=== PATIENT | male | born 2000 | race Caucasian/White ===

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

== ENCOUNTER 2020-07-09 17:21 | Emergency (ER) | payer BC ==
--- NOTE | 2020-07-09 17:54 | ED ---
General Adult HPI <Jackie Garay - Last Filed: 07/09/20 17:49> <Guanakito Pruitt - Last Filed: 07/09/20 20:30> - General Chief complaint: ENT Stated complaint: Sent by PCP - covid+, BAM Time Seen by Provider: 07/09/20 17:49 - History of Present Illness Initial comments: Patient is a 19-year-old male with history of diabetes, presenting to emergency Department requesting Covid antiviral infusion treatment. Patient states he tested positive today for Covid, his symptoms began on Sunday, 4 days ago. His symptoms seem to be mild, cough, congestion, sore throat. He denies any chest pain, no shortness of breath, no fevers or chills. He states he followed up with his doctor who recommended coming in for antiviral infusion as he is a diabetic. He has no further complaints at this time. Upon arrival to the ER his vital signs are stable. (Jackie Garay) - Related Data Home Medications Medication Instructions Recorded Confirmed Acetaminophen [Tylenol] 650 mg PO Q4H PRN 11/12/17 11/12/17 Albuterol Sulfate [Proair Hfa] 1 - 2 puff INHALATION Q6HR PRN 11/12/17 11/12/17 Insulin Aspart (For Pump) [NovoLOG 0.01 unit SQ-PUMP CONTINUOUS 11/12/17 11/12/17 (For Pump)] Previous Rx's Medication Instructions Recorded Ondansetron Odt [Zofran Odt] 4 mg PO Q8HR PRN #12 tab 11/12/17 Allergies Allergy/AdvReac Type Severity Reaction Status Date / Time No Known Allergies Allergy Verified 11/12/17 17:40 Review of Systems ROS Other: All systems not noted in ROS Statement are negative. <Jackie Garay - Last Filed: 07/09/20 17:49> ROS Other: All systems not noted in ROS Statement are negative. <Guanakito Pruitt - Last Filed: 07/09/20 20:30> ROS Statement: Those systems with pertinent positive or pertinent negative responses have been documented in the HPI. Past Medical History Past Medical History: Diabetes Mellitus History of Any Multi-Drug Resistant Organisms: None Reported Past Surgical History: No Surgical Hx Reported Past Psychological History: No Psychological Hx Reported Past Alcohol Use History: None Reported Past Drug Use History: None Reported <Jackie Garay - Last Filed: 07/09/20 17:49> General Exam <Jackie Garay - Last Filed: 07/09/20 17:49> - General Exam Comments Initial Comments: GENERAL: Patient is well-developed and well-nourished. Patient is nontoxic and in no acute distress. HEAD: Atraumatic, normocephalic. EYES: Pupils equal round and reactive to light, extraocular movements intact, sclera anicteric, conjunctiva are normal. Eyelids were unremarkable. ENT: Nares patent, oropharynx clear without exudates. Moist mucous membranes. NECK: Normal range of motion, supple without lymphadenopathy or JVD. LUNGS: Unlabored respirations. Breath sounds clear to auscultation bilaterally and equal. No wheezes rales or rhonchi. HEART: Regular rate and rhythm without murmurs, rubs or gallops. ABDOMEN: Soft, nontender, normoactive bowel sounds. No guarding, no rebound. No masses appreciated. : Deferred MUSCULOSKELETAL: Normal extremities with adequate strength and normal range of motion, no pitting or edema. No clubbing or cyanosis. NEUROLOGICAL: Patient is alert and oriented x 3. Motor and sensory are also intact. Cranial nerves II through XII grossly intact. Symmetrical smile. Normal speech, normal gait. PSYCH: Normal mood, normal affect. SKIN: Warm, Dry, normal turgor, no rashes or lesions noted. (Jackie Garay) Course Vital Signs 07/09/20 17:47 Temperature 98.4 F Pulse Rate 81 Respiratory 18 Rate Blood Pressure 156/87 O2 Sat by Pulse 98 Oximetry Medical Decision Making <Jackie Garay - Last Filed: 07/09/20 17:49> <Guanakito Pruitt - Last Filed: 07/09/20 20:30> - Medical Decision Making Patient is a 19-year-old male with history of type 1 diabetes, presenting for Covid antiviral infusion. He tested positive for Covid today, symptoms began 4 days ago. His vitals are stable, exam is unremarkable. Patient does qualify for BAM infusion. (Jackie Garay) 19-year-old male with history of type 1 diabetes presenting to emergency Department with a chief complaint of monoclonal antibody infusion. Patient was given the infusion and tolerated well. He was observed in the emergency department for over an hour. Patient will be discharged and advised to continue quarantining. Antipyretic control. Plenty of fluids. Return to emergency department if symptoms worsen. Case discussed with Dr. Acevedo. (Guanakito Pruitt) Disposition <Jackie Garya - Last Filed: 07/09/20 17:49> Is patient prescribed a controlled substance at d/c from ED?: No Time of Disposition: 20:30 <Guanakito Pruitt - Last Filed: 07/09/20 20:30> Clinical Impression: COVID-19 Disposition: HOME SELF-CARE Condition: Stable Instructions (If sedation given, give patient instructions): Coronavirus Disease 2019 (COVID-19) Additional Instructions: Please return to the Emergency Department if symptoms worsen or any other concerns. Referrals: Ishmael Felipe MD [Primary Care Provider] - 1-2 days
[2020-07-09] MEDS ORDERED: BAMLANIVIMAB (EUA) 700 MG, ETESEVIMAB (EUA) 1,400 MG in SODIUM CHLORIDE 0.9% 50 ML IVPB ONE (18:30)
[2020-07-09] MEDS ORDERED: SODIUM CHLORIDE 0.9% 50 ML IVPB ONE (18:50)
[2020-07-09 21:31] VITALS: BP 130/83; PULSE 65; RESP 16; TEMP 98
== END 2020-07-09 21:30 | disposition home or self-care (01) ==
LOC: EC 17:21
DX: U07.1 COVID-19 (principal); E11.9 Type 2 diabetes mellitus without complications; Z79.4 Long term (current) use of insulin
CPT/HCPCS: 99283; 96365; Q0245

== ENCOUNTER → 2024-03-03 | Outpatient (CLI) | payer BC ==
--- NOTE | 2024-03-03 12:19 | CA ---
Transthoracic Echo Report Name: Ellis Amezcua Age: 23 Gender: M : 2000 Exam Date: 03/03/2024 11:35 Exam Location: [place] Echo Ht (in): 68 Wt (lb): 235 Ordering Physician: Ishmael Felipe MD Attending/Referring Phys: Denice Wade [facility] [employer] Setter Anu Stout RDCS Procedure CPT: Indications: R94.31 ABNORMAL ELECTROCARDIOGRAM Cardiac Hx: Technical Quality: Fair Contrast 1: Total Dose (mL): Contrast 2: Total Dose (mL): MEASUREMENTS (Male / Female) Normal Values 2D ECHO LV Diastolic Diameter PLAX 4.4 cm 4.2 - 5.9 / 3.9 - 5.3 cm LV Systolic Diameter PLAX 3.1 cm IVS Diastolic Thickness 1.1 cm 0.6 - 1.0 / 0.6 - 0.9 cm LVPW Diastolic Thickness 1.1 cm 0.6 - 1.0 / 0.6 - 0.9 cm LV Relative Wall Thickness 0.5 RV Internal Dim ED PLAX 3.2 cm LA Systolic Diameter LX 3.1 cm 3.0 - 4.0 / 2.7 - 3.8 cm LV Diastolic Volume MOD 4C 102.6 cm??? LV Systolic Volume MOD 4C 59.7 cm??? LV Ejection Fraction MOD 4C 41.9 % LV Cardiac Index MOD 4C 1230.6 cm???/min???m??? LV Diastolic Length 4C 8.0 cm LV Systolic Length 4C 6.7 cm LV Diastolic Volume MOD 2C 129.3 cm??? LV Systolic Volume MOD 2C 58.4 cm??? LV Ejection Fraction MOD 2C 54.8 % LV Cardiac Index MOD 2C 2029.0 cm???/min???m??? LV Diastolic Length 2C 8.4 cm LV Systolic Length 2C 6.8 cm LA Volume 35.8 cm??? 18 - 58 / 22 - 52 cm??? LA Volume Index 15.5 cm???/m??? 16 - 28 cm???/m??? M-MODE LV Diastolic Diameter MM 4.8 cm 4.2 - 5.9 / 3.9 - 5.3 cm LV Systolic Diameter MM 3.0 cm LV Cardiac Index MM Teich 2025.9 cm???/min???m??? IVS Diastolic Thickness MM 1.0 cm 0.6 - 1.0 / 0.6 - 0.9 cm LVPW Diastolic Thickness MM 1.1 cm 0.6 - 1.0 / 0.6 - 0.9 cm LV Relative Wall Thickness MM 0.4 0.24 - 0.42 / 0.22 - 0.42 LV Mass Index MM 76.6 g/m??? 49 - 115 / 43 - 95 g/m??? Aortic Root Diameter MM 3.1 cm AV Cusp Separation MM 1.9 cm DOPPLER AV Peak Velocity 137.9 cm/s AV Peak Gradient 7.6 mmHg MV Area PHT 3.7 cm??? Mitral E Point Velocity 81.8 cm/s Mitral A Point Velocity 52.4 cm/s Mitral E to A Ratio 1.6 MV Deceleration Time 205.2 ms TR Peak Velocity 218.7 cm/s TR Peak Gradient 19.1 mmHg Right Ventricular Systolic Press 24.0 mmHg FINDINGS Left Ventricle Left ventricular ejection fraction is estimated at 55 %. Mildly increased septal wall thickness. Left ventricular cavity size normal. Right Ventricle Normal right ventricular size and function. Right ventricular systolic pressure within normal limits. Right Atrium Normal right atrial size. No right atrial thrombus or mass seen. Left Atrium Normal left atrial size. No left atrial thrombus or mass present. Mitral Valve Structurally normal mitral valve. No evidence for mitral valve prolapse. Aortic Valve Trileaflet aortic valve. No aortic valve stenosis or regurgitation. Tricuspid Valve Structurally normal tricuspid valve. Mild tricuspid regurgitation. Pulmonic Valve Structurally normal pulmonic valve. No pulmonic regurgitation. Pericardium No pericardial or pleural effusion. Aorta Normal size aortic root and proximal ascending aorta. CONCLUSIONS Normal LV size and systolic function although endocardial margins are not well seen.. No significant abnormality on the Doppler exam. No pericardial effusion. Previewed by: Dr. Alphonso Blanchard MD (Electronically Signed) Final Date: 03 March 2024 12:19
== END | disposition home or self-care (01) ==
LOC: RADECHMAIN 11:18
PROVIDERS: ATTEND Family Medicine
DX: I07.1 Rheumatic tricuspid insufficiency (principal); R94.31 Abnormal electrocardiogram [ECG] [EKG]
CPT/HCPCS: 93306

== ENCOUNTER → 2024-04-11 | Outpatient (CLI) | payer BC ==
--- NOTE | 2024-04-11 13:27 | CA ---
Stress Echo Report Ellis Amezcua Age: 23 Gender: M : 2000 Exam Date: 04/11/2024 09:21 Exam Location: [place] Stress Ht (in): 68 Wt (lb): 220 Ordering Physician: Ishmael Felipe MD Referring Physician: Matteo GONZALEZ Court Recorder: RICHARD Technologist Procedure CPT: Indication: R94.31 ABNORMAL EKG ICD-9 Codes: Rhythm: Patient History: Cardiac Medications: LISINOPRIL, LEXAPRO, Medications in past 24 hours: Contrast: N/A Stress Results Protocol: Shashi Total dose(mL): NA Exercise Duration (min:sec): 9:[address] Depression (mm): Angina Score: Grimaldo Score: METS: 11.1 Resting HR: 96 Resting BP: 126 / 78 Peak HR: 182 Peak BP: 192 / 79 Max Predicted HR: 195 93 % Max Predicted HR Target HR: 166 Double Product: [id number] Stress Summary: The patient's target heart rate was achieved The hemodynamic response to exercise was normal BP Response: Reason for Termination: MAX EXERTION/TARGET HR Cardiac Symptoms: CHEST PRESSURE ECG Analysis Resting ECG: Normal sinus rhythm, normal ECG Stress ECG: No abnormal ST/T wave changes with exercise Arrhythmia: None Echo Analysis Resting Echo: Normal resting echocardiogram. Peak Echo Analysis: Normal wall thickening and motion MEASUREMENTS (Male/Female) Normal Values CONCLUSIONS 1. Good exercise tolerance with normal electrocardiographic response to exercise 2. Chest discomfort during exercise of unclear etiology 3. Normal stress echocardiogram with no evidence of stress- induced ischemia. Dr. Denzel Wynn MD (Electronically Signed) Final Date: 11 April 2024 13:26
== END | disposition home or self-care (01) ==
LOC: RADNMMAIN 08:56
PROVIDERS: ATTEND Family Medicine
DX: R94.31 Abnormal electrocardiogram [ECG] [EKG] (principal)
CPT/HCPCS: 93351